=== PATIENT | male | born 1970 | race Caucasian/White ===

== ENCOUNTER 2017-12-17 10:23 | Emergency (ER) ==
[2017-12-17 10:32] VITALS: BP 129/84; TEMP 97.9; BMI 31.8
--- NOTE | 2017-12-17 10:53 | ED.PDOC ---
General ED Provider: Dr. ALISHA JASSO Chief Complaint: Finger Laceration Stated Complaint: finger laceration Time Seen by Physician: 10:30 (see photos) Mode of Arrival: Walk-In Information Source: Patient Nursing and Triage Documentation Reviewed and Agree: Yes Does patient meet sepsis criteria?: Yes If yes, has appropriate treatment been initiated?: No System Inflammatory Response Syndrome: Not Applicable Sepsis Protocol: For patient's 13 years and over: Temp is 96.8 and below OR 101 and greater Pulse >90 BPM Resp >20/minute Acutely Altered Mental Status Are patient's symptoms suggestive of a new infection, such as: -Pneumonia -Skin, Soft Tissue -Endocarditis -UTI -Bone, Joint Infection -Implantable Device -Acute Abdominal Infection -Wound Infection -Meningitis -Blood Stream Catheter Infection -Unknown Skin Complaint Exam - Lac/Torso/Upper Ext. Complaint/Exam Location of Injury: Left (middle finger ) Mechanism of Injury: Laceration Onset/Duration: 1 hr ago see photos Initial Severity: Mild Current Severity: Mild Aggravating: None Alleviating: None Associated Signs and Symptoms: Denies: Fever, Chills, Erythema, Numbness, Tingling Related History: Reports: Anticoagulant use Differential Diagnoses: Laceration Review of Systems - Review Of Systems Constitutional: Reports: No symptoms Eyes: Reports: No symptoms Ears, Nose, Mouth, Throat: Reports: No symptoms Respiratory: Reports: No symptoms Cardiac: Reports: No symptoms GI: Reports: No symptoms : Reports: No symptoms Musculoskeletal: Reports: No symptoms Skin: Reports: Other (laceration left middle finger ) Neurological: Reports: No symptoms Endocrine: Reports: No symptoms Hematologic/Lymphatic: Reports: No symptoms All Other Systems: Reviewed and Negative Past Medical History - Past Medical History Previously Healthy: Yes Endocrine: Reports: None Cardiovascular: Reports: None Respiratory: Reports: None Hematological: Reports: None Gastrointestinal: Reports: None Genitourinary: Reports: None Neuro/Psych: Reports: None Musculoskeletal: Reports: None Cancer: Reports: None - Surgical History General Surgical History: Reports: None - Family History Family History: Reports: None - Social History Smoking Status: Current every day smoker, Heavy tobacco smoker Hx Substance Use: No Alcohol Screening: Occasionally - Immunizations Tetanus Shot up to Date: No Physical Exam - Physical Exam Appearance: Well-appearing, No pain distress, Well-nourished Eyes: VIVI, EOMI, Conjunctiva clear ENT: Ears normal, Nose normal, Oropharynx normal Respiratory: Airway patent, Breath sounds clear, Breath sounds equal, Respirations nonlabored Cardiovascular: RRR, Pulses normal, No rub, No murmur GI/: Soft, Nontender, No masses, Bowel sounds normal, No Organomegaly Musculoskeletal: Normal strength, ROM intact, No edema, No calf tenderness Skin: Warm, Dry (4mm lacer ation left middle finger see photos) Neurological: Sensation intact, Motor intact, Reflexes intact, Cranial nerves intact, Alert, Oriented Psychiatric: Affect appropriate, Mood appropriate Critical Care Note - Critical Care Note Total Time (mins): 0 Course - Course Vital Signs: Temp Pulse Resp BP Pulse Ox 12/17/17 10:23 97.9 F 96 H 16 129/84 98 Departure - Departure Time of Disposition: 10:53 (wound dermabonded charityzane present at all times ) Disposition: HOME SELF-CARE Discharge Problem: Laceration of finger Instructions: Laceration (ED), Skin Adhesive Care (ED) Condition: Good Pt referred to PMD for follow-up: Yes IPMP verified?: No Additional Instructions: Please call your Family Physician as soon as possible to schedule a follow-up appointment. Allergies/Adverse Reactions: Allergies Sulfa (Sulfonamide Antibiotics) Adverse Reaction (Verified 12/17/17 10:34) Home Medications: Ambulatory Orders 1 [No Reported Medications] 12/17/17
[2017-12-17] MEDS ORDERED: TENIVAC IM ONE (10:54)
== END 2017-12-17 11:10 | disposition home or self-care (01) ==
LOC: ED 10:23
DX: S61.213A Laceration without foreign body of left middle finger without damage to nail, initial encounter (principal); W45.8XXA Other foreign body or object entering through skin, initial encounter; F17.210 Nicotine dependence, cigarettes, uncomplicated
CPT/HCPCS: 90714; 99283

== ENCOUNTER 2021-06-11 22:56 | Observation (INO) ==
[2021-06-11 23:33] LABS: OCCULT BLOOD SAMPLE 1 POSITIVE (NEGATIVE)
[2021-06-11 23:33] LABS: BASOPHILS % (AUTO) 0.5 % (0.0-3.0); EOSINOPHILS % (AUTO) 0.5 % (0.0-7.0); HEMATOCRIT 33.4 % (42.0-52.0); HEMOGLOBIN 11.4 g/dl (14.0-18.0); IMMATURE GRANULOCYTE % (AUTO) 0.3 % (0.0-5.0); LYMPHOCYTES # (AUTO) 1.2 K/uL (0.60-3.4); LYMPHOCYTES % (AUTO) 19.8 (10.0-50.0); MEAN CORPUSCULAR HEMOGLOBIN 29.8 pg (27.0-31.0); MEAN CORPUSCULAR HGB CONC 34.1 (31.8-35.4); MEAN CORPUSCULAR VOLUME 87.4 fl (80.0-94.0); MONOCYTES # (AUTO) 0.7 K/uL (0.4-2.0); NEUTROPHILS # (AUTO) 4.1 K/ul (2.0-6.9); NEUTROPHILS % (AUTO) 67.9 % (42.2-75.2); PLATELET COUNT 245 10^3/uL (140-440); RDW COEFFICIENT OF VARIATION 12.8 % (11.6-14.8); RED BLOOD COUNT 3.82 10^6/ul (4.70-6.10)
[2021-06-11] MEDS ORDERED: SODIUM CHLORIDE 1,000 ML IV STA (23:33)
--- NOTE | 2021-06-11 23:33 | ED.PDOC ---
General ED Provider: Dr. ASA PEÑA Chief Complaint: Non-specific Complaint Stated Complaint: Diagnosed with covid yesterday. Had colonoscopy this week Started having bloody stool this evening with diarrhea. He had 6 polyps removed during his Colonoscopy, He apparently took two Aspirins today for his fever due to covid. Time Seen by Provider: 06/11/21 23:17 Information Source: Patient Primary Care Provider: AV CHAWLA Nursing and Triage Documentation Reviewed and Agree: Yes Does patient meet sepsis criteria?: No System Inflammatory Response Syndrome: Not Applicable Sepsis Protocol: For patient's 13 years and over: Temp is 96.8 and below OR 101 and greater Pulse >90 BPM Resp >20/minute Acutely Altered Mental Status Are patient's symptoms suggestive of a new infection, such as: -Pneumonia -Skin, Soft Tissue -Endocarditis -UTI -Bone, Joint Infection -Implantable Device -Acute Abdominal Infection -Wound Infection -Meningitis -Blood Stream Catheter Infection -Unknown Review of Systems Review Of Systems Constitutional: Reports No symptoms Eyes: Reports No symptoms Ears, Nose, Mouth, Throat: Reports No symptoms Respiratory: Reports No symptoms Cardiac: Reports No symptoms GI: Reports Rectal bleeding : Reports No symptoms Musculoskeletal: Reports No symptoms Skin: Reports No symptoms Neurological: Reports Anxiety All Other Systems: Reviewed and Negative [facility] Family History Mother Cancer UNCLE Cancer MATERNAL GRANDMOTHER Cancer MATERNAL GRANDFATHER Cancer Physical Exam Physical Exam Appearance: Reports Obese Ill-appearing: None Pain Distress: None Eyes: Reports VIVI and EOMI ENT: Reports Nose normal and Oropharynx normal Neck: Supple Respiratory: Reports Airway patent, Breath sounds clear and Breath sounds equal Cardiovascular: Reports RRR, Pulses normal and No rub GI/: Reports Soft and Bowel sounds hyperactive Musculoskeletal: Reports Normal strength and ROM intact Skin: Reports Warm and Dry Neurological: Reports Sensation intact, Motor intact, Alert and Oriented Psychiatric: Reports Anxious Critical Care Note Critical Care Note Total Critical Care Time (mins): 30 Course Course Hematology/Chemistry: 06/12/21 17:01 06/12/21 06:00 Orders, Labs, Meds: Lab Review 06/11/21 06/11/21 06/11/21 23:18 23:18 23:20 WBC 6.00 RBC 3.82 L Hgb 11.4 L Hct 33.4 L MCV 87.4 MCH 29.8 MCHC 34.1 RDW Coeff of Estefania 12.8 Plt Count 245 Immature Gran % (Auto) 0.3 Neut % (Auto) 67.9 Lymph % (Auto) 19.8 Lyon % (Auto) 11.0 H Eos % (Auto) 0.5 Baso % (Auto) 0.5 Neut # (Auto) 4.1 Lymph # (Auto) 1.2 Lyon # (Auto) 0.7 Eos # (Auto) 0.0 Baso # (Auto) 0.0 Immature Gran # (Auto) 0.0 Sodium 137.4 Potassium 3.88 Chloride 109.9 H Carbon Dioxide 23.6 Anion Gap 7.78 BUN 17.7 Creatinine 1.30 H Estimated GFR (MDRD) 58.00 BUN/Creatinine Ratio 13.61 Glucose 156.0 H Calcium 7.67 L Total Bilirubin 0.19 L AST 29.3 ALT 34.8 Alkaline Phosphatase 68.0 Total Protein 5.56 L Albumin 3.15 L Globulin 2.41 Albumin/Globulin Ratio 1.30 Amylase 49.3 Lipase 83.7 Stl Occult Blood (IFOB) Positive Stool Occult Blood #2 No specimen received Stool Occult Blood #3 No specimen received Orders Category Date Time Status ED IV/MEDIPORT/POWERPORT .ONCE EMERGENCY 06/11/21 23:17 Active AMYLASE Stat LAB 06/11/21 23:18 Completed CBC W/ AUTO DIFF Stat LAB 06/11/21 23:18 Completed COMPREHENSIVE METABOLIC PANEL Stat LAB 06/11/21 23:18 Completed LIPASE Stat LAB 06/11/21 23:18 Completed OCCULT BLOOD, STOOL Stat LAB 06/11/21 23:20 Completed URINALYSIS C & S IF INDICATED Stat LAB 06/11/21 23:18 Completed 0.9 % Sodium Chloride [Saline Flush] MEDS 06/11/21 23:17 Discontinued 1 syr IVF PRN PRN Sodium Chloride 0.9% [Sodium Chloride] 1,000 ml MEDS 06/11/21 23:33 Discontinued IV BOLUS Medications Generic Name Dose Route Start Last Admin Trade Name Freq PRN Reason Stop Dose Admin Acetaminophen 650 mg 06/12/21 00:25 Acetaminophen 325 Mg Tablet PO Q4H PRN Fever and Mild Pain Atorvastatin Calcium 20 mg 06/12/21 09:00 06/12/21 12:03 Atorvastatin Calcium 20 Mg Tablet PO 20 mg DAILY FAIZA Administration Azithromycin 500 mg 06/12/21 11:00 06/12/21 12:03 Azithromycin 250 Mg Tablet PO 06/15/21 08:59 500 mg DAILY FAIZA Administration Cholecalciferol 5,000 unit 06/12/21 11:00 06/12/21 12:03 Cholecalciferol (Vitamin D3) 1,000 Unit (25 Mcg) Tablet PO 5,000 unit DAILY FAIZA Administration Famotidine 20 mg 06/12/21 10:00 06/12/21 17:02 Famotidine 20 Mg Tablet PO 20 mg BIDAC FAIZA Administration Multivitamins 1 tab 06/12/21 09:00 06/12/21 12:03 Multivitamin 1 Tab PO 1 tab DAILY FAIZA Administration Ondansetron HCl 4 mg 06/12/21 00:25 Ondansetron Hcl/Pf 4 Mg/2 Ml Sdv IVP Q6H PRN Nausea / Vomiting Pantoprazole Sodium 40 mg 06/12/21 21:00 Pantoprazole Sodium 40 Mg Vial IVP Q12HR FAIZA Sodium Chloride 1 syr 06/12/21 21:00 0.9% Sodium Chloride 10 Ml Disp.Syrin IVF Q8HR FAIZA Zinc Sulfate 220 mg 06/12/21 11:00 06/12/21 12:03 Zinc Sulfate 220 Mg Capsule PO 220 mg DAILY FAIZA Administration Discontinued Medications Generic Name Dose Route Start Last Admin Trade Name Freq PRN Reason Stop Dose Admin Cholecalciferol 5,000 unit 06/13/21 09:00 Cholecalciferol (Vitamin D3) 1,000 Unit (25 Mcg) Tablet PO DAILY FAIZA Sodium Chloride 1,000 mls @ 1,000 mls/hr 06/11/21 23:33 06/11/21 23:39 Sodium Chloride IV 06/12/21 00:32 1,000 mls/hr BOLUS STA Administration Sodium Chloride 1,000 mls @ 150 mls/hr 06/12/21 00:30 06/12/21 07:00 Sodium Chloride IV 150 mls/hr .Q6H40M FAIZA Administration Pantoprazole Sodium 80 mg 06/12/21 00:45 06/12/21 01:04 Pantoprazole Sodium 40 Mg Vial IVP 06/12/21 00:46 80 mg ONCE ONE Administration Pantoprazole Sodium 40 mg 06/12/21 09:00 06/12/21 09:46 Pantoprazole Sodium 40 Mg Vial IVP 40 mg DAILY FAIZA Administration Sodium Chloride 1 syr 06/11/21 23:17 0.9% Sodium Chloride 10 Ml Disp.Syrin IVF PRN PRN To flush IV Vital Signs: Temp Pulse Resp BP Pulse Ox 06/11/21 22:57 96.5 F L 109 H 18 117/76 97 Discharge Plan Discharge Patient Disposition: ADMITTED INPATIENT Discharge Problem: Acute lower gastrointestinal bleeding, COVID-19 ED Provider: ASA PEÑA Condition: Fair Physician Progress Note: []
[2021-06-11 23:45] LABS: ALANINE AMINOTRANSFERASE 34.8 U/L (0-50); ALBUMIN 3.15 g/dL (3.5-5.0); AMYLASE 49.3 U/L (30-110); ASPARTATE AMINO TRANSFERASE 29.3 U/L (17-59); BILIRUBIN,TOTAL 0.19 mg/dL (0.2-1.3); BLOOD UREA NITROGEN 17.7 mg/dL (9-20); CALCIUM 7.67 mg/dL (8.4-10.2); CARBON DIOXIDE 23.6 mmol/L (22-30.0); CHLORIDE 109.9 mmol/L (98-107); CREATININE 1.3 mg/dL (0.60-1.10); LIPASE 83.7 U/L (23-300); POTASSIUM 3.88 mmol/L (3.5-5.1); SODIUM 137.4 mmol/L (134.5-145); TOTAL PROTEIN 5.56 g/dL (6.3-8.2)
[2021-06-12] MEDS ORDERED: ZOFRAN 4 MG/2 ML IVP PRN (00:25)
[2021-06-12] MEDS ORDERED: TYLENOL PO PRN (00:25)
[2021-06-12] MEDS ORDERED: PROTONIX IV IVP ONE (00:45)
[2021-06-12 01:04] VITALS: BMI 33.3
[2021-06-12] MEDS: SODIUM CHLORIDE 1,000 ML IV SCH ×2 (01:04→07:00)
[2021-06-12 06:11] LABS: BASOPHILS % (AUTO) 0.3 % (0.0-3.0); HEMATOCRIT 29.1 % (42.0-52.0); HEMOGLOBIN 9.9 g/dl (14.0-18.0); IMMATURE GRANULOCYTE % (AUTO) 0.7 % (0.0-5.0); LYMPHOCYTES # (AUTO) 1.9 K/uL (0.60-3.4); LYMPHOCYTES % (AUTO) 30.3 (10.0-50.0); MEAN CORPUSCULAR HEMOGLOBIN 29.6 pg (27.0-31.0); MEAN CORPUSCULAR VOLUME 87.1 fl (80.0-94.0); MONOCYTES # (AUTO) 0.7 K/uL (0.4-2.0); MONOCYTES % (AUTO) 11.1 (0-10); NEUTROPHILS # (AUTO) 3.5 K/ul (2.0-6.9); NEUTROPHILS % (AUTO) 57.6 % (42.2-75.2); PLATELET COUNT 239 10^3/uL (140-440); RDW COEFFICIENT OF VARIATION 12.8 % (11.6-14.8); RED BLOOD COUNT 3.34 10^6/ul (4.70-6.10)
[2021-06-12 06:25] LABS: ALANINE AMINOTRANSFERASE 31.9 U/L (0-50); ALBUMIN 3.01 g/dL (3.5-5.0); ALKALINE PHOSPHATASE 58.7 U/L (38-126); ASPARTATE AMINO TRANSFERASE 26.2 U/L (17-59); BILIRUBIN,TOTAL 0.19 mg/dL (0.2-1.3); BLOOD UREA NITROGEN 15.8 mg/dL (9-20); CALCIUM 7.44 mg/dL (8.4-10.2); CHLORIDE 110.4 mmol/L (98-107); CREATININE 1.22 mg/dL (0.60-1.10); GLUCOSE 131.7 mg/dL (74-106); POTASSIUM 4.32 mmol/L (3.5-5.1); SODIUM 136.5 mmol/L (134.5-145); TOTAL PROTEIN 5.31 g/dL (6.3-8.2)
[2021-06-12 08:21] LABS: BILIRUBIN,URINE Negative (NEGATIVE); CLARITY,URINE Clear (CLEAR); COLOR,URINE Yellow (YELLOW); GLUCOSE, URINE (UA) Negative (NEGATIVE); KETONES,URINE Negative (NEGATIVE); LEUKOCYTE ESTERASE ,URINE Negative (NEGATIVE); NITRITE,URINE Negative (NEGATIVE); PH,URINE 5.5 (5-9); PROTEIN,URINE Trace (NEGATIVE); URINE, BLOOD Negative (NEGATIVE); UROBILINOGEN,URINE 0.2 (0.2)
[2021-06-12 08:37] LABS: FINE GRANULAR CASTS,URINE 0-2 (NOT PRESENT); MUCUS,URINE 2+ (NOT PRESENT); SQUAMOUS EPITHELIAL CELL,UR 0-2 (0-5)
[2021-06-12] MEDS ORDERED: NON-FORMULARY MEDICATION (Zinc 10 mg Tablet) PO SCH (09:00)
[2021-06-12] MEDS ORDERED: PROTONIX IV IVP SCH (09:00)
[2021-06-12 09:03] LABS: HEMATOCRIT 26.2 % (42.0-52.0); HEMOGLOBIN 8.8 g/dl (14.0-18.0); MEAN CORPUSCULAR HEMOGLOBIN 29.2 pg (27.0-31.0); MEAN CORPUSCULAR HGB CONC 33.6 (31.8-35.4); RDW COEFFICIENT OF VARIATION 12.9 % (11.6-14.8); RED BLOOD COUNT 3.01 10^6/ul (4.70-6.10); WHITE BLOOD COUNT 5.31 K/ul (4.2-10.2)
[2021-06-12 09:04] LABS: OCCULT BLOOD SAMPLE 2 NO SPECIMEN RECEIVED (NEGATIVE); OCCULT BLOOD SAMPLE 3 NO SPECIMEN RECEIVED (NEGATIVE)
[2021-06-12] MEDS: VITAMIN D PO SCH (12:03)
[2021-06-12] MEDS: ZINC-220 PO SCH (12:03)
[2021-06-12] MEDS: ZITHROMAX PO SCH (12:03)
[2021-06-12] MEDS: LIPITOR PO SCH (12:03)
[2021-06-12] MEDS: MULTIVITAMIN TABLET PO SCH (12:03)
[2021-06-12] MEDS: PEPCID PO SCH ×2 (12:04→17:02)
--- NOTE | 2021-06-12 12:19 | DI ---
EXAM: Chest one view, frontal view only. HISTORY: COVID-19. COMPARISON: 12/31/2020. FINDINGS: The heart size is normal. There is no pulmonary vascular congestion. The lungs are clear . No pleural effusion or pneumothorax is seen. No acute osseous abnormality is identified. Since t he prior study, there has been no significant interval change. IMPRESSION: No acute cardiopulmonary process.
--- NOTE | 2021-06-12 12:41 | CT ---
EXAM: CT abdomen pelvis with and without contrast HISTORY: Blood in stools, nausea and vomiting, status post colonoscopy COMPARISON: None TECHNIQUE: CT abdomen pelvis performed with and without intravenous contrast. Coronal and sagittal reformatted imageS obtained. FINDINGS: Mild right basilar atelectasis. No free air. No acute abnormalities of the bones. Degen erative change in the spine. Heart normal in size. Liver unremarkable. No gallstones identified. Pancreas unremarkable. Spleen top normal in size.. Adrenals unremarkable. No hydronephrosis or nep hrolithiasis. No calculi visualized in normal course of the ureters. Bladder unremarkable. Prostat e normal in size. Aorta normal in caliber. Very mild atherosclerotic calcification. No lymphadenop athy or ascites. Fat-containing periumbilical hernia. Small hiatal hernia. No dilated loops small bowel. Appendix appears normal. Colon unremarkable. IMPRESSION: 1. No acute abnormality identified in the abdomen or pelvis. 2. Small hiatal hernia All CT scans are performed using dose optimization techniques as appropriate to the performed exam an d include at least one of the following: Automated exposure control, adjustment of the mA and/or kV according t o size, and the use of iterative reconstruction technique.
[2021-06-12 13:10] LABS: HEMATOCRIT 24.7 % (42.0-52.0); HEMOGLOBIN 8.5 g/dl (14.0-18.0); MEAN CORPUSCULAR HEMOGLOBIN 29.7 pg (27.0-31.0); MEAN CORPUSCULAR HGB CONC 34.4 (31.8-35.4); MEAN CORPUSCULAR VOLUME 86.4 fl (80.0-94.0); RDW COEFFICIENT OF VARIATION 12.8 % (11.6-14.8); RED BLOOD COUNT 2.86 10^6/ul (4.70-6.10); WHITE BLOOD COUNT 4.81 K/ul (4.2-10.2)
[2021-06-12 17:45] LABS: HEMOGLOBIN 8.2 g/dl (14.0-18.0); MEAN CORPUSCULAR HEMOGLOBIN 29.6 pg (27.0-31.0); MEAN CORPUSCULAR HGB CONC 34.2 (31.8-35.4); MEAN CORPUSCULAR VOLUME 86.6 fl (80.0-94.0); RDW COEFFICIENT OF VARIATION 12.8 % (11.6-14.8); RED BLOOD COUNT 2.77 10^6/ul (4.70-6.10); WHITE BLOOD COUNT 4.86 K/ul (4.2-10.2)
[2021-06-12] MEDS: PROTONIX IV IVP SCH (20:49)
[2021-06-12 22:34] LABS: HEMATOCRIT 21.9 % (42.0-52.0); HEMOGLOBIN 7.6 g/dl (14.0-18.0); MEAN CORPUSCULAR HGB CONC 34.7 (31.8-35.4); MEAN CORPUSCULAR VOLUME 86.6 fl (80.0-94.0); RED BLOOD COUNT 2.53 10^6/ul (4.70-6.10); WHITE BLOOD COUNT 4.54 K/ul (4.2-10.2)
[2021-06-13] MEDS: PEPCID PO SCH ×2 (05:42→17:23)
[2021-06-13 05:49] LABS: BASOPHILS % (AUTO) 0.4 % (0.0-3.0); EOSINOPHILS # (AUTO) 0.1 K/ul (0.0-0.7); EOSINOPHILS % (AUTO) 1.9 % (0.0-7.0); HEMATOCRIT 22.8 % (42.0-52.0); HEMOGLOBIN 7.8 g/dl (14.0-18.0); IMMATURE GRANULOCYTE % (AUTO) 0.4 % (0.0-5.0); LYMPHOCYTES % (AUTO) 41.5 (10.0-50.0); MEAN CORPUSCULAR HEMOGLOBIN 29.4 pg (27.0-31.0); MEAN CORPUSCULAR HGB CONC 34.2 (31.8-35.4); MONOCYTES # (AUTO) 0.5 K/uL (0.4-2.0); MONOCYTES % (AUTO) 9.4 (0-10); NEUTROPHILS # (AUTO) 2.2 K/ul (2.0-6.9); NEUTROPHILS % (AUTO) 46.4 % (42.2-75.2); PLATELET COUNT 201 10^3/uL (140-440); RDW COEFFICIENT OF VARIATION 12.8 % (11.6-14.8); RED BLOOD COUNT 2.65 10^6/ul (4.70-6.10)
[2021-06-13 06:03] LABS: ALBUMIN 2.96 g/dL (3.5-5.0); ALKALINE PHOSPHATASE 52.6 U/L (38-126); ASPARTATE AMINO TRANSFERASE 26.5 U/L (17-59); BILIRUBIN,TOTAL 0.22 mg/dL (0.2-1.3); BLOOD UREA NITROGEN 10.7 mg/dL (9-20); CALCIUM 7.73 mg/dL (8.4-10.2); CARBON DIOXIDE 26.9 mmol/L (22-30.0); CREATININE 1.07 mg/dL (0.60-1.10); GLUCOSE 110.7 mg/dL (74-106); POTASSIUM 4.01 mmol/L (3.5-5.1); SODIUM 137.6 mmol/L (134.5-145); TOTAL PROTEIN 5.06 g/dL (6.3-8.2)
[2021-06-13 06:19] LABS: IRON 104.7 ug/dL (49-181)
[2021-06-13] MEDS: ZINC-220 PO SCH (08:09)
[2021-06-13] MEDS: LIPITOR PO SCH (08:09)
[2021-06-13] MEDS: VITAMIN D PO SCH (08:09)
[2021-06-13] MEDS: PROTONIX IV IVP SCH ×2 (08:09→21:36)
[2021-06-13] MEDS: MULTIVITAMIN TABLET PO SCH (08:10)
[2021-06-13] MEDS: ZITHROMAX PO SCH (08:10)
[2021-06-13] MEDS ORDERED: VITAMIN D PO SCH (09:00)
[2021-06-13 10:11] LABS: ADENOVIRUS F40/41 (PCR) NOT DETECTED (NOT DETECT); ASTROVIRUS (PCR) NOT DETECTED (NOT DETECT); CAMPYLOBACTER (PCR) NOT DETECTED (NOT DETECT); CRYPTOSPORIDIUM (PCR) NOT DETECTED (NOT DETECT); CYCLOSPORA CAYETANENSIS (PCR) NOT DETECTED (NOT DETECT); ENTAMOEBA HISTOLYTICA (PCR) NOT DETECTED (NOT DETECT); ENTEROAGGREGATIVE E.COLI (PCR) NOT DETECTED (NOT DETECT); GIARDIA LAMBLIA (PCR) NOT DETECTED (NOT DETECT); NOROVIRUS GI/GII (PCR) NOT DETECTED (NOT DETECT); PLESIOMONAS SHIGELLOIDES (PCR) NOT DETECTED (NOT DETECT); ROTAVIRUS A (PCR) NOT DETECTED (NOT DETECT); SALMONELLA(PCR) NOT DETECTED (NOT DETECT); SAPOVIRUS (PCR) NOT DETECTED (NOT DETECT); SHIGA-LIKE TOXIN E.COLI (PCR) NOT DETECTED (NOT DETECT); VIBRIO (PCR) NOT DETECTED (NOT DETECT); VIBRIO CHOLERAE (PCR) NOT DETECTED (NOT DETECT); YERSINIA ENTEROCOLITICA (PCR) NOT DETECTED (NOT DETECT)
[2021-06-13 11:27] LABS: C DIFF A/B (PCR) NOT DETECTED (NOT DETECT)
--- NOTE | 2021-06-13 14:28 | PCM.PROG ---
pt of Dr Griffith/Dacia is covid + pt evaluated for anemia s/p colonoscopy recently, Hgb yesterday 7.6, today 7.8, pt reports some dizziness with standing, continues dry cough but not short of breath at rest, no fever, vss heent: eomi, conjunctiva clear lungs: clear a/p heart: RRR abdomen: soft and nontender extremities: warm and dry Plan: am cbc, continue covid protochol care to Dr Antoine at 19:00
--- NOTE | 2021-06-13 14:32 | PCM.PROG ---
Objective: Vitals: T=97.9 F, P=90, R=18, MM=870/71, PXB9=924 HEENT: [] Neck: [] Lungs: [] CVS: [] Abdomen: [] Extremities: [] Neurological: [] Skin: [] Lab/Tests/Diagnostic Imaging: [] (1) Acute lower gastrointestinal bleeding: Status: Acute Code(s): K92.2 - Gastrointestinal hemorrhage, unspecified SNOMED Code(s): 12916038 (2) COVID-19: Status: Acute Code(s): U07.1 - COVID-19 SNOMED Code(s): 097712902
[2021-06-13 16:31] LABS: BASOPHILS % (AUTO) 0.4 % (0.0-3.0); EOSINOPHILS % (AUTO) 0.7 % (0.0-7.0); HEMATOCRIT 21.2 % (42.0-52.0); HEMOGLOBIN 7.4 g/dl (14.0-18.0); IMMATURE GRANULOCYTE % (AUTO) 0.2 % (0.0-5.0); LYMPHOCYTES # (AUTO) 1.7 K/uL (0.60-3.4); LYMPHOCYTES % (AUTO) 37.5 (10.0-50.0); MEAN CORPUSCULAR HEMOGLOBIN 29.8 pg (27.0-31.0); MEAN CORPUSCULAR HGB CONC 34.9 (31.8-35.4); MEAN CORPUSCULAR VOLUME 85.5 fl (80.0-94.0); MONOCYTES # (AUTO) 0.3 K/uL (0.4-2.0); MONOCYTES % (AUTO) 6.8 (0-10); NEUTROPHILS # (AUTO) 2.5 K/ul (2.0-6.9); NEUTROPHILS % (AUTO) 54.4 % (42.2-75.2); PLATELET COUNT 221 10^3/uL (140-440); RDW COEFFICIENT OF VARIATION 12.9 % (11.6-14.8); RED BLOOD COUNT 2.48 10^6/ul (4.70-6.10); WHITE BLOOD COUNT 4.59 K/ul (4.2-10.2)
[2021-06-14] MEDS: PEPCID PO SCH ×2 (05:36→17:41)
[2021-06-14 06:23] LABS: BASOPHILS % (AUTO) 0.2 % (0.0-3.0); EOSINOPHILS # (AUTO) 0.1 K/ul (0.0-0.7); EOSINOPHILS % (AUTO) 2.1 % (0.0-7.0); HEMATOCRIT 22.7 % (42.0-52.0); HEMOGLOBIN 7.8 g/dl (14.0-18.0); IMMATURE GRANULOCYTE % (AUTO) 0.2 % (0.0-5.0); LYMPHOCYTES # (AUTO) 2.4 K/uL (0.60-3.4); LYMPHOCYTES % (AUTO) 50.3 (10.0-50.0); MEAN CORPUSCULAR HEMOGLOBIN 29.7 pg (27.0-31.0); MEAN CORPUSCULAR HGB CONC 34.4 (31.8-35.4); MEAN CORPUSCULAR VOLUME 86.3 fl (80.0-94.0); MONOCYTES # (AUTO) 0.4 K/uL (0.4-2.0); MONOCYTES % (AUTO) 8.2 (0-10); NEUTROPHILS # (AUTO) 1.9 K/ul (2.0-6.9); PLATELET COUNT 221 10^3/uL (140-440); RDW COEFFICIENT OF VARIATION 12.7 % (11.6-14.8); RED BLOOD COUNT 2.63 10^6/ul (4.70-6.10); WHITE BLOOD COUNT 4.77 K/ul (4.2-10.2)
[2021-06-14 06:40] LABS: ALANINE AMINOTRANSFERASE 28.4 U/L (0-50); ALBUMIN 3.21 g/dL (3.5-5.0); ALKALINE PHOSPHATASE 53.4 U/L (38-126); ASPARTATE AMINO TRANSFERASE 27.9 U/L (17-59); BILIRUBIN,TOTAL 0.37 mg/dL (0.2-1.3); BLOOD UREA NITROGEN 9.3 mg/dL (9-20); CARBON DIOXIDE 27.2 mmol/L (22-30.0); CHLORIDE 106.2 mmol/L (98-107); CREATININE 1.14 mg/dL (0.60-1.10); GLUCOSE 102.2 mg/dL (74-106); POTASSIUM 3.66 mmol/L (3.5-5.1); SODIUM 136.7 mmol/L (134.5-145); TOTAL PROTEIN 5.37 g/dL (6.3-8.2)
[2021-06-14] MEDS: ZINC-220 PO SCH (09:35)
[2021-06-14] MEDS: ZITHROMAX PO SCH (09:35)
[2021-06-14] MEDS: VITAMIN D PO SCH (09:35)
[2021-06-14] MEDS: MULTIVITAMIN TABLET PO SCH (09:35)
[2021-06-14] MEDS: LIPITOR PO SCH (09:35)
[2021-06-14] MEDS: PROTONIX IV IVP SCH ×2 (10:00→20:21)
[2021-06-15 05:17] LABS: BASOPHILS % (AUTO) 0.2 % (0.0-3.0); EOSINOPHILS # (AUTO) 0.2 K/ul (0.0-0.7); EOSINOPHILS % (AUTO) 3.1 % (0.0-7.0); HEMATOCRIT 22.7 % (42.0-52.0); HEMOGLOBIN 7.8 g/dl (14.0-18.0); IMMATURE GRANULOCYTE % (AUTO) 0.4 % (0.0-5.0); LYMPHOCYTES # (AUTO) 2.5 K/uL (0.60-3.4); LYMPHOCYTES % (AUTO) 45.7 (10.0-50.0); MEAN CORPUSCULAR HEMOGLOBIN 29.5 pg (27.0-31.0); MEAN CORPUSCULAR HGB CONC 34.4 (31.8-35.4); MONOCYTES # (AUTO) 0.4 K/uL (0.4-2.0); MONOCYTES % (AUTO) 7.1 (0-10); NEUTROPHILS # (AUTO) 2.4 K/ul (2.0-6.9); NEUTROPHILS % (AUTO) 43.5 % (42.2-75.2); PLATELET COUNT 258 10^3/uL (140-440); RDW COEFFICIENT OF VARIATION 12.9 % (11.6-14.8); RED BLOOD COUNT 2.64 10^6/ul (4.70-6.10); WHITE BLOOD COUNT 5.52 K/ul (4.2-10.2)
[2021-06-15 05:34] LABS: ALANINE AMINOTRANSFERASE 30.8 U/L (0-50); ALBUMIN 3.44 g/dL (3.5-5.0); ALKALINE PHOSPHATASE 55.4 U/L (38-126); ASPARTATE AMINO TRANSFERASE 26.1 U/L (17-59); BILIRUBIN,TOTAL 0.23 mg/dL (0.2-1.3); BLOOD UREA NITROGEN 10.6 mg/dL (9-20); CALCIUM 7.97 mg/dL (8.4-10.2); CARBON DIOXIDE 26.3 mmol/L (22-30.0); CREATININE 1.13 mg/dL (0.60-1.10); GLUCOSE 112.7 mg/dL (74-106); POTASSIUM 3.98 mmol/L (3.5-5.1); SODIUM 137.6 mmol/L (134.5-145); TOTAL PROTEIN 5.67 g/dL (6.3-8.2)
[2021-06-15] MEDS: PEPCID PO SCH ×2 (05:54→16:27)
[2021-06-15] MEDS: PROTONIX IV IVP SCH ×2 (09:15→20:54)
[2021-06-15] MEDS: MULTIVITAMIN TABLET PO SCH (09:16)
[2021-06-15] MEDS: LIPITOR PO SCH (09:16)
[2021-06-15] MEDS: ZINC-220 PO SCH (09:16)
[2021-06-15] MEDS: VITAMIN D PO SCH (09:22)
[2021-06-16] MEDS: PEPCID PO SCH (06:17)
[2021-06-16 07:38] LABS: BASOPHILS % (AUTO) 0.3 % (0.0-3.0); EOSINOPHILS # (AUTO) 0.2 K/ul (0.0-0.7); EOSINOPHILS % (AUTO) 3.4 % (0.0-7.0); HEMATOCRIT 24.3 % (42.0-52.0); HEMOGLOBIN 8.3 g/dl (14.0-18.0); IMMATURE GRANULOCYTE % (AUTO) 0.6 % (0.0-5.0); LYMPHOCYTES # (AUTO) 2.2 K/uL (0.60-3.4); LYMPHOCYTES % (AUTO) 34.3 (10.0-50.0); MEAN CORPUSCULAR HEMOGLOBIN 29.7 pg (27.0-31.0); MEAN CORPUSCULAR HGB CONC 34.2 (31.8-35.4); MEAN CORPUSCULAR VOLUME 87.1 fl (80.0-94.0); MONOCYTES # (AUTO) 0.5 K/uL (0.4-2.0); MONOCYTES % (AUTO) 8.5 (0-10); NEUTROPHILS # (AUTO) 3.3 K/ul (2.0-6.9); NEUTROPHILS % (AUTO) 52.9 % (42.2-75.2); PLATELET COUNT 300 10^3/uL (140-440); RDW COEFFICIENT OF VARIATION 12.9 % (11.6-14.8); RED BLOOD COUNT 2.79 10^6/ul (4.70-6.10); WHITE BLOOD COUNT 6.26 K/ul (4.2-10.2)
[2021-06-16 07:52] LABS: ALANINE AMINOTRANSFERASE 35.1 U/L (0-50); ALBUMIN 3.67 g/dL (3.5-5.0); ALKALINE PHOSPHATASE 57.7 U/L (38-126); BILIRUBIN,TOTAL 0.38 mg/dL (0.2-1.3); BLOOD UREA NITROGEN 11.2 mg/dL (9-20); CALCIUM 8.31 mg/dL (8.4-10.2); CARBON DIOXIDE 28.2 mmol/L (22-30.0); CHLORIDE 106.5 mmol/L (98-107); CREATININE 1.04 mg/dL (0.60-1.10); POTASSIUM 3.94 mmol/L (3.5-5.1); SODIUM 138.5 mmol/L (134.5-145); TOTAL PROTEIN 6.15 g/dL (6.3-8.2)
[2021-06-16] MEDS ORDERED: INJECTAFER 750 MG in SODIUM CHLORIDE 100ML 100 ML IV ONE (09:17)
[2021-06-16] MEDS: VITAMIN D PO SCH (09:37)
[2021-06-16] MEDS: LIPITOR PO SCH (09:38)
[2021-06-16] MEDS: ZINC-220 PO SCH (09:38)
[2021-06-16] MEDS: MULTIVITAMIN TABLET PO SCH (09:38)
[2021-06-16] MEDS: PROTONIX IV IVP SCH (09:40)
--- NOTE | 2021-06-16 09:45 | PN ---
DATE OF SERVICE: 06/12/2021 SUBJECTIVE: The patient is admitted under hospitalist came to the ER last night after having multiple bright red bloody stools. He had a colonoscopy about a week ago. Test positive for COVID two days ago 06-10-21 through our office. He was having mild COVID symptoms. Only a dry cough, some chills and has not had fever. Has had some body aches. The chest x-ray has not yet been done nor a CAT scan of the abdomen and pelvis. Hgb was 11.4 on admission. He has received about three bags of IV fluids. Hgb down to 9.9 today. He is having some dizziness upon standing. He has had only one liquid stool this morning since being admitted and it was bloody with some clots. REVIEW OF SYSTEMS: CONSTITUTIONAL: No night sweats. Fatigue. No fever or chills. Weakness. HEENT: Eyes: No visual changes. No eye pain. No eye discharge. ENT: No runny nose. No epistaxis. No sinus pain. No sore throat. No odynophagia. No congestion. RESPIRATORY: Dry cough, no congestion. No hemoptysis. No shortness of breath. CARDIOVASCULAR: No angina symptoms. No CHF symptoms. No atypical chest pain for CAD. No palpitations. No PND. No orthopnea. GASTROINTESTINAL: No abdominal pain. No nausea or vomiting. No diarrhea or constipation. No hematochezia. Blood in stool. GENITOURINARY: No urgency. No frequency. No dysuria. No hematuria. No obstructive symptoms. No discharge. No pain. No significant abnormal bleeding. MUSCULOSKELETAL: No musculoskeletal pain; no joint swelling. NEUROLOGICAL: No headache. No neck pain. No syncope. No seizures. Dizziness upon standing. PSYCHIATRIC: Not anxious. No depression. No suicidal thoughts. No homicidal thoughts. SKIN: No rash. No lesions. No wounds. ENDOCRINE: No unexplained weight loss. No weight gain. HEMATOLOGIC/LYMPHATIC: Anemia. No purpura. No petechiae. No prolonged or excessive bleeding. No palpable lymph nodes. PHYSICAL EXAMINATION: HEENT: Head normocephalic, atraumatic. Eyes: Extraocular muscles are intact. Pupils are equal, round and reactive to light and accommodation. Ears: No lesions. Nose appeared normal. Throat: No exudate or erythema. NECK: Supple. No JVD, no carotid bruit. No lymphadenopathy or thyromegaly. LUNGS: Diminished breath sounds. Clear to auscultation. Percussion note normal. Chest symmetrical. HEART: S1, S2, no S3. No murmurs. No cyanosis or clubbing. No ascites. Pulses: Dorsalis pedis and posterior tibial pulses +1 to +2 bilaterally. ABDOMEN: Soft. Nontender. Bowel sounds active. No CVA tenderness. No mass felt. EXTREMITIES: No edema. Full range of motion of all extremities, equal. NEUROLOGIC: No focal deficit. Cranial nerves II through XII are grossly intact. No headache. No double vision. SKIN: Not dry. Intact. Turgor - normal. LYMPHATIC: No palpable lymph nodes/no lymphedema. MUSCULOSKELETAL: Normal joints with no swelling. Muscle tone is normal. ASSESSMENT: 1. Possible GI bleed 2. Acute anemia 3. Positive COVID 19 4. Dizziness 5. Generalized weakness 6. Viral syndrome PLAN: 1. CT of the abdomen and pelvis with and without this morning 2. Chest x-ray 3. Start on Zinc 220mg PO daily 4. Increase Protonix to 40mg IV Q 12 5. Start on Pepcid 40mg PO BID 6. He has been as I said he received a liter of fluids in the ER and then as been on 150cc since. Blood pressure has been stable. Last was 113/68 and pulse ox 98%, respiratory rate 20, temperature 97.4, heart rate 88. 7. Vitamin D 5000 8. GI panel done on his stool 9. Discontinue IV fluids as likely some of his anemia is also the result of some hemodilation and nurses are to call me with results of CAT scan TIME SPENT: More than 30 minutes. Plan and coordination of the patient's care discussed in the presence of nurse. RAMOS
--- NOTE | 2021-06-16 09:57 | PN ---
DATE OF SERVICE: 06/13/2021 SUBJECTIVE: The patient continues to have blood stool however it is partially formed but there is bright red along with dark stool present. Hgb at 7.8 I did stop his IV fluids yesterday. Hgb last night at about 11 was 7.6. Given the shortage of blood we are unable to transfuse him at this time. He is asymptomatic with the exception that he is slightly tachycardic when he gets up. From COVID status he is stable. Chest x-ray was normal. He only is having a dry cough. REVIEW OF SYSTEMS: CONSTITUTIONAL: No night sweats. No fatigue, malaise, lethargy. No fever or chills. Weakness. HEENT: Eyes: No visual changes. No eye pain. No eye discharge. ENT: No runny nose. No epistaxis. No sinus pain. No sore throat. No odynophagia. No congestion. RESPIRATORY: Cough, no congestion. No hemoptysis. No shortness of breath. CARDIOVASCULAR: No angina symptoms. No CHF symptoms. No atypical chest pain for CAD. No palpitations. No PND. No orthopnea. GASTROINTESTINAL: No abdominal pain. No nausea or vomiting. No diarrhea or constipation. No hematemesis. No hematochezia. GENITOURINARY: No urgency. No frequency. No dysuria. No hematuria. No obstructive symptoms. No discharge. No pain. No significant abnormal bleeding. MUSCULOSKELETAL: No musculoskeletal pain; no joint swelling. NEUROLOGICAL: No headache. No neck pain. No syncope. No seizures. No dizziness. PSYCHIATRIC: Not anxious. No depression. No suicidal thoughts. No homicidal thoughts. SKIN: No rash. No lesions. No wounds. ENDOCRINE: No unexplained weight loss. No weight gain. HEMATOLOGIC/LYMPHATIC: Anemia. No purpura. No petechiae. No prolonged or excessive bleeding. No palpable lymph nodes. PHYSICAL EXAMINATION: HEENT: Head normocephalic, atraumatic. Eyes: Extraocular muscles are intact. Pupils are equal, round and reactive to light and accommodation. Ears: No lesions. Nose appeared normal. Throat: No exudate or erythema. NECK: Supple. No JVD, no carotid bruit. No lymphadenopathy or thyromegaly. LUNGS: Clear to auscultation. Percussion note normal. Chest symmetrical. HEART: S1, S2, no S3. No murmurs. No cyanosis or clubbing. No ascites. Pulses: Dorsalis pedis and posterior tibial pulses +1 to +2 bilaterally. ABDOMEN: Soft. Nontender. Bowel sounds active. No CVA tenderness. No mass felt. EXTREMITIES: No edema. Full range of motion of all extremities, equal. NEUROLOGIC: No focal deficit. Cranial nerves II through XII are grossly intact. No headache. No double vision. SKIN: Not dry. Intact. Pallor LYMPHATIC: No palpable lymph nodes/no lymphedema. MUSCULOSKELETAL: Normal joints with no swelling. Muscle tone is normal. LABS: Hgb 7.8, hct 22.8, sodium 137, potassium 4.01, BUN 10, creatinine 1.07, glucose 110. CT of the abdomen and pelvis with and without contrast was done yesterday which showed no acute process. Only cause seems to be for his GI bleed would be that he had a colonoscopy with 6 polyps removed last week. After speaking with the physician in charge Dr. Salcido in the ER who was acting hospitalist we have agreed that it would be in his best interest to transfer him to a facility to a GI physician. Hopefully we can get him transferred to [facility] where Dr. Anderson is located who actually performed his colonoscopy. He is stable. Again blood pressure is normal 112/63, oxygen 99%. ASSESSMENT: 1. Acute GI bleed 2. Anemia 3. COVID 19 PLAN: 1. Will attempt to transfer for further care 2. Will follow closely TIME SPENT: More than 30 minutes. Plan and coordination of the patient's care discussed in the presence of nurse. RAMOS
[2021-06-16 10:41] VITALS: BP 134/76; TEMP 98.1
--- NOTE | 2021-06-16 11:17 | PCM.DC ---
Final Diagnosis: Lower GI bleeding, Resoved. COVID 19 - Asymptomatic after 2 nd day Anemia due to GI bleeding. (1) Acute lower gastrointestinal bleeding: Status: Acute Code(s): K92.2 - Gastrointestinal hemorrhage, unspecified SNOMED Code(s): 38711456 (2) COVID-19: Status: Acute Code(s): U07.1 - COVID-19 SNOMED Code(s): 672506826 Reason for Hospitalization: To monitor HG due to lower GI bleeding. follow blood pressure and lab Transfuse if needed Prognosis/Condition at Discharge: Improved with HG stable at 8.3, Additionally patient was given an Iron infusion x1 which he tolroated well. Medications at Discharge: Ambulatory Orders Medication Instructions Recorded atorvastatin 20 mg tablet (Lipitor) 20 mg PO DAILY 05/28/21 calcium phosphate,dibasic 77 1 tab PO DAILY 05/28/21 mg-vitamin D3 400 unit tablet multivitamin 1 tab PO DAILY 05/28/21 sildenafil 25 mg tablet (Viagra) 25 mg PO DAILY PRN 05/28/21 zinc 10 mg tablet 10 mg PO DAILY 05/28/21 ferrous sulfate 325 mg (65 mg 325 mg PO BID #60 tab 06/16/21 iron) tablet,delayed release pantoprazole 20 mg tablet,delayed 20 mg PO BID #60 tab 06/16/21 release Lab/Diagnostics: See labs tab Education Provided to Patient and Family: Avoid taking Aspirin which was the cause of his GI bleeding after Biopsy of Polyps. Follow-ups: With Dr Perez and Dr Griffith. Advised to return to any ER if needed for symptoms of Bleeding weakness or dizziness. Discharge Disposition: Home Hospital Course: was monitored closely with HG dropping from 10 to 7.6 then started to go up on its own without transfusion to 8.3. He was given an iron infusion prior to discharge. Had minimal COVID symptoms Prior to admission and had no symptoms during this hospitalization. Exam on day of discharge was within normal limits with lungs clear, Heart Regular, s1 and s2 only. Abdomen obese but soft not tender to palpation. Ext noted with no edema. Plan: Discharge home.
--- NOTE | 2021-06-16 11:58 | PN ---
DATE OF SERVICE: 06/14/2021 SUBJECTIVE: The patient under the care of the hospitalist. They were unable to transfer him yesterday. Hgb seems to be stable at 7.8 today. He is eating and drinking well. Just some mild dizziness when he get up and goes to the bathroom. Blood pressure is stable 112/63. He is still had one bloody stool last night and then again this morning. Kidney function is normal. REVIEW OF SYSTEMS: CONSTITUTIONAL: No night sweats. No fatigue, malaise, lethargy. No fever or chills. HEENT: Eyes: No visual changes. No eye pain. No eye discharge. ENT: No runny nose. No epistaxis. No sinus pain. No sore throat. No odynophagia. No congestion. RESPIRATORY: No cough, no congestion. No hemoptysis. No shortness of breath. CARDIOVASCULAR: No angina symptoms. No CHF symptoms. No atypical chest pain for CAD. No palpitations. No PND. No orthopnea. GASTROINTESTINAL: No abdominal pain. No nausea or vomiting. No diarrhea or constipation. No hematemesis. No hematochezia. GENITOURINARY: No urgency. No frequency. No dysuria. No hematuria. No obstructive symptoms. No discharge. No pain. No significant abnormal bleeding. MUSCULOSKELETAL: No musculoskeletal pain; no joint swelling. NEUROLOGICAL: No headache. No neck pain. No syncope. No seizures. Sizziness. PSYCHIATRIC: Not anxious. No depression. No suicidal thoughts. No homicidal thoughts. SKIN: No rash. No lesions. No wounds. ENDOCRINE: No unexplained weight loss. No weight gain. HEMATOLOGIC/LYMPHATIC: Anemia. No purpura. No petechiae. No prolonged or excessive bleeding. No palpable lymph nodes. PHYSICAL EXAMINATION: HEENT: Head normocephalic, atraumatic. Eyes: Extraocular muscles are intact. Pupils are equal, round and reactive to light and accommodation. Ears: No lesions. Nose appeared normal. Throat: No exudate or erythema. NECK: Supple. No JVD, no carotid bruit. No lymphadenopathy or thyromegaly. LUNGS: Diminished breath sounds. Clear to auscultation. Percussion note normal. Chest symmetrical. HEART: S1, S2, no S3. No murmurs. No cyanosis or clubbing. No ascites. Pulses: Dorsalis pedis and posterior tibial pulses +1 to +2 bilaterally. ABDOMEN: Soft. Nontender. Bowel sounds active. No CVA tenderness. No mass felt. EXTREMITIES: No edema. Full range of motion of all extremities, equal. NEUROLOGIC: No focal deficit. Cranial nerves II through XII are grossly intact. No headache. No double vision. SKIN: Not dry. Intact. Turgor - normal. LYMPHATIC: No palpable lymph nodes/no lymphedema. MUSCULOSKELETAL: Normal joints with no swelling. Muscle tone is normal. ASSESSMENT: 1. GI bleed 2. Acute anemia PLAN: 1. We will continue with IV Protonix and PO Pepcid 2. We are going to continue to attempt to transfer yet again today for GI consult. TIME SPENT: More than 30 minutes. Plan and coordination of the patient's care discussed in the presence of nurse. RAOMS
--- NOTE | 2021-06-25 11:30 | PN ---
DATE OF SERVICE: 06/20/2021 SUBJECTIVE: The patient was hospitalized in my absence under Hospitalist. He was taken care of by Dacia Harris along with Hospitalist service. All the orders given by Dacia Harris likely that I co-signed them because they fall under my name and I signed them. Brought to the attention of IT Department and talked to Lindsey about this mistake that is happening. , ever since Dacia has been working. Administration is supposed to correct this mistak MTDD
--- NOTE | 2021-07-04 10:09 | PCM.PROG ---
Date Seen by Provider: 06/15/21 Subjective: hx gi bleed and anemia Objective: Vitals: T=98.1 F, P=81, R=16, VM=694/76, SPO2=98 HEENT: [] Neck: [] Lungs: [] CVS: [] Abdomen: [] Extremities: [] Neurological: [] Skin: [] Lab/Tests/Diagnostic Imaging: [] (1) Acute lower gastrointestinal bleeding: Status: Acute Code(s): K92.2 - Gastrointestinal hemorrhage, unspecified SNOMED Code(s): 34119541 (2) COVID-19: Status: Acute Code(s): U07.1 - COVID-19 SNOMED Code(s): 629511936 Plan: consultation w/ Dacia RODRIGUEZ for Dr Griffith, awaiting GI consult
== END 2021-06-16 11:35 | disposition home or self-care (01) ==
LOC: ED 22:56 → MEDSURG B 22:56 → UNDODISOB 06-16 11:08
PROVIDERS: ADMIT Emergency Medicine; ATTEND Emergency Medicine
DX: K91.840 Postprocedural hemorrhage of a digestive system organ or structure following a digestive system procedure; U07.1 COVID-19; K92.2 Gastrointestinal hemorrhage, unspecified